=== PATIENT | male | born 1980 | race Caucasian/White ===

== ENCOUNTER 2016-05-14 07:30 | Inpatient (IN) | payer OTHER ==
[2016-05-23 09:39] LABS: MANUAL DIFF NEEDED? NO; URINE MICRO REVIEW NEEDED? NO; URINE SOURCE CLEAN CATCH
[2016-05-23 09:48] LABS: BASO% 0.5 % (0.0-0.8); EOS# 0.38 X1000 (0.0-0.7); EOS% 3.4 % (0.0-10.0); HEMOGLOBIN 14.5 g/dL (14.0-18.0); IMM GRAN# 0.02 X1000 (0.0-0.04); IMM GRAN% 0.2 % (0.0-0.5); LYMPH# 3.07 X1000 (1.2-3.4); LYMPH% 27.8 % (20.5-51.1); MCH 29.4 PG (27-31); MCV 89.1 FL (81-99); MONO# 0.85 X1000 (0.11-0.59); MONO% 7.7 % (1.7-9.3); MPV 8.3 FL (7.4-10.4); NEUT% 60.4 % (42.2-75.2); PLT 318 X1000 (130-400); RBC 4.94 XMIL (4.7-6.1)
[2016-05-23 09:57] LABS: BILIRUBIN URINE NEGATIVE (NEGATIVE); BLOOD URINE NEGATIVE (NEGATIVE); COLOR YELLOW; GLUCOSE URINE NEGATIVE (NEGATIVE); LEUKOCYTES URINE NEGATIVE (NEGATIVE); NITRITE URINE NEGATIVE (NEGATIVE); PH URINE 5.5; PROTEIN URINE 30 mg/dL (NEGATIVE); TURBIDITY URINE CLEAR (CLEAR); UR EPITHELIAL CELLS <10 /HPF (<10); URINE BACTERIA NEGATIVE /HPF; URINE RBC <10 /HPF (<10); URINE WBC <10 /HPF (<10); UROBILINOGEN URINE 2 mg/dL (NORMAL)
[2016-05-23 10:08] LABS: INR 0.91; PROTIME 9.3 Seconds (9.2-11.7); PTT 23.9 Seconds (22.0-36.0)
--- NOTE | 2016-05-23 10:45 | EKG Report ---
Test Performed on : 05/23/2016 09:17:27 AM Test Reason : PAT Blood Pressure : / mmHG Vent. Rate : 091 BPM Atrial Rate : 091 BPM P-R Int : 152 ms QRS Dur : 086 ms QT Int : 356 ms P-R-T Axes : 058 000 026 degrees QTc Int : 437 ms Normal sinus rhythm. Inferior infarct , age undetermined Abnormal ECG No previous ECGs available Confirmed by Marita SCRUGGS, Yohan Jeong ([id number]) on 05/24/2016 9:28:48 AM
[2016-05-23 10:49] LABS: AGAP 12; BUN 8 mg/dL (8-22); CALCIUM 9.1 mg/dL (8.8-10.2); CHLORIDE 99 mmol/L (98-107); COSMO 279; POTASSIUM 4.5 mmol/L (3.5-5.1); SODIUM 141 mmol/L (136-145); TCO2 30 mmol/L (25-35)
[2016-05-28] MEDS ORDERED: COLACE ONE (06:06)
[2016-05-28] MEDS ORDERED: PEPCID ONE (06:06)
[2016-05-28] MEDS ORDERED: REGLAN ONE (06:06)
[2016-05-28] MEDS ORDERED: KEFZOL 2 GM/D5W 50 ML ONE (06:07)
[2016-05-28] MEDS ORDERED: LR 1,000 ML ONE (06:07)
[2016-05-28] MEDS ORDERED: LYRICA ONE (06:07)
[2016-05-28] MEDS ORDERED: CELEBREX ONE (06:07)
[2016-05-28] MEDS ORDERED: DUONEB (A & A) INH ONE (06:54)
[2016-05-28] MEDS ORDERED: VALIUM ONE (06:55)
[2016-05-28] MEDS ORDERED: ROBINUL ONE ×2 (06:55→10:30)
[2016-05-28] MEDS ORDERED: TORADOL ONE (07:19)
[2016-05-28] MEDS ORDERED: DURAMORPH ONE (07:19)
[2016-05-28] MEDS ORDERED: SODIUM CHLORIDE 0.9% ONE (07:20)
[2016-05-28] MEDS ORDERED: CYKLOKAPRON 1,000 MG/NS 100 ML ONE (07:20)
[2016-05-28] MEDS ORDERED: NEOSPORIN G.U. IRRIGANT ONE (07:20)
[2016-05-28] MEDS ORDERED: MARCAINE 0.25% PF/EPI 1:200,000 ONE (07:20)
[2016-05-28] MEDS ORDERED: CLAVE SECONDARY SET 11953 ONE (07:21)
[2016-05-28] MEDS ORDERED: EXPAREL 1.3% ONE (07:21)
[2016-05-28 08:49] LABS: URINE MICRO REVIEW NEEDED? NO; URINE SOURCE CATH
[2016-05-28 09:59] LABS: URINE RBC <10 /HPF (<10); URINE WBC <10 /HPF (<10)
[2016-05-28 10:00] LABS: UR EPITHELIAL CELLS <10 /HPF (<10); URINE BACTERIA NEGATIVE /HPF
[2016-05-28 10:01] LABS: BILIRUBIN URINE NEGATIVE (NEGATIVE); BLOOD URINE NEGATIVE (NEGATIVE); COLOR YELLOW; GLUCOSE URINE NEGATIVE (NEGATIVE); SP GRAVITY URINE 1.012; TURBIDITY URINE CLEAR (CLEAR)
[2016-05-28 10:02] LABS: LEUKOCYTES URINE NEGATIVE (NEGATIVE); NITRITE URINE NEGATIVE (NEGATIVE); PH URINE 6.5; PROTEIN URINE NEGATIVE (NEGATIVE); UROBILINOGEN URINE NORMAL (NORMAL)
[2016-05-28] MEDS ORDERED: KETAMINE (DOSE) ONE (10:12)
[2016-05-28] MEDS ORDERED: FENTANYL ONE (10:12)
[2016-05-28] MEDS ORDERED: VERSED ONE (10:13)
[2016-05-28] MEDS ORDERED: DIPRIVAN 1% ONE (10:13)
[2016-05-28] MEDS ORDERED: MORPHINE IV PRN (10:16)
[2016-05-28] MEDS ORDERED: MILK OF MAGNESIA PO PRN (10:16)
[2016-05-28] MEDS ORDERED: ZOFRAN IV PRN (10:16)
[2016-05-28] MEDS ORDERED: NS 1,000 ML ONE (10:24)
[2016-05-28] MEDS ORDERED: NEO-SYNEPHRINE ONE (10:30)
[2016-05-28] MEDS ORDERED: NEOSTIGMINE ONE (10:30)
[2016-05-28] MEDS ORDERED: XYLOCAINE-MPF 2% ONE (10:30)
[2016-05-28] MEDS ORDERED: EPHEDRINE ONE (10:30)
[2016-05-28] MEDS ORDERED: ZOFRAN ONE (10:30)
[2016-05-28] MEDS ORDERED: STERILE WATER INJ. ONE (10:30)
[2016-05-28] MEDS ORDERED: NORCURON ONE (10:30)
[2016-05-28] MEDS ORDERED: DECADRON ONE (10:31)
[2016-05-28] MEDS ORDERED: OFIRMEV 1000 MG/ISOTONIC SOLN 100 ML ONE (10:31)
[2016-05-28] MEDS ORDERED: LR 2,000 ML ONE (10:31)
[2016-05-28] MEDS ORDERED: QUELICIN (DOSE) ONE (10:31)
--- NOTE | 2016-05-28 11:51 | OPERATIVE NOTE ---
PROCEDURE DATE: 05/28/2016 PREOPERATIVE DIAGNOSIS: Right hip degenerative joint disease. POSTOPERATIVE DIAGNOSIS: Right hip degenerative joint disease. PROCEDURE: Right hip total hip arthroplasty through a direct anterior approach using [facility] size 13 stem high offset, with a +0, 36 mm head, and a 62 mm hemispherical shell, and a 36 mm inside diameter acetabular liner. ANESTHESIA: General. SURGEON: Mil Roche MD REEL WINDER: SCOTT Rivera SECOND REEL WINDER: TC Rodríguez THIRD REEL WINDER: Harika Mccormack PA-C DESCRIPTION OF PROCEDURE: The patient was brought to the operative suite and placed in the supine position. After satisfactory of general anesthesia, patient was placed on the OSI table in the usual position for right hip. The right hip was then prepped and draped in the usual sterile fashion. A longitudinal incision was made beginning 2 cm distal and 2 cm lateral to the anterior superior iliac spine, extending distally and slightly laterally 8 cm. It was dissected sharply through skin and subcutaneous tissue, down the tensor fascia. The tensor fascia was incised and then dissected bluntly down to the deep tensor fascia. The deep tensor fascia was incised, electrocauterized the circumflex vessels, exposing the anterior capsule. A T-capsulotomy was performed, exposing the femoral neck. A femoral neck cut was made with the oscillating saw. The femoral head was removed with a power corkscrew. The labrum was resected along was some calcified labrum superiorly and laterally and acetabulum serially reamed to a 62 to accept a 62 cup. The 62 cup was then driven into place in the proper amount inclination and anteversion. This was well seated and stable, therefore, no screws were placed. The liner was then locked into the shell. Attention was then directed to the femur. The femur was externally rotated, extended, abducted, and elevated out of the wound with the hook on the OSI bed. The lateral neck was rongeured. The canal was serially broached to a size 13. A size 13 high offset, +0, was trialed, found to be excellent leg length, offset, and fit and fill of the stem. The trial was removed. The definitive stem was locked on the femur and once it was well seated the Biolox Delta +0, 36 mm head was locked onto the Perez taper of the stem neck and then the hip was reduced. It was found again to be in excellent position. The hip was copiously infiltrated with Exparel, including the posterior capsule, anterior capsule, anterior musculature, and subcutaneous tissue. The anterior capsule was repaired with #2 FiberWire. A drain was placed deep to the tensor fascia and buried around the stem neck. The tensor fascia and sartorius fascia were closed with 0 Vicryl suture running and the skin edges were approximated with 2-0 Vicryl. Skin was closed with skin omid and a sterile dressing was applied. The patient tolerated the procedure well without complication. At the end of the procedure, all counts correct x2. The patient was transferred to the recovery room in stable condition.
[2016-05-28] MEDS: ULTRAM PO SCH ×2 (12:47→17:20)
[2016-05-28] MEDS: OXY IR PO SCH ×3 (13:06→21:20)
[2016-05-28] MEDS: NS 1,000 ML IV SCH (13:07)
[2016-05-28] MEDS ORDERED: CYKLOKAPRON 1,000 MG in NS 100 ML IV ONE (14:00)
[2016-05-28] MEDS: FLEXERIL PO SCH ×2 (14:16→21:24)
[2016-05-28] MEDS: TYLENOL PO SCH ×2 (14:16→21:24)
[2016-05-28] MEDS: NEURONTIN PO SCH ×2 (14:16→21:31)
[2016-05-28] MEDS: MORPHINE IV PRN ×2 (14:31→19:23)
[2016-05-28] MEDS: NICODERM PATCH TD SCH (15:42)
[2016-05-28] MEDS: KEFZOL 2 GM/D5W 50 ML IV SCH (15:42)
[2016-05-28] MEDS ORDERED: AMBIEN PO PRN (21:00)
[2016-05-28] MEDS ORDERED: DESYREL PO SCH (21:00)
[2016-05-28] MEDS: PERIDEX MT SCH (21:20)
[2016-05-28] MEDS: COLACE PO SCH (21:23)
[2016-05-29] MEDS: OXY IR PO PRN ×2 (00:14→03:57)
[2016-05-29] MEDS: KEFZOL 2 GM/D5W 50 ML IV SCH (00:18)
[2016-05-29] MEDS: NS 1,000 ML IV SCH (00:19)
[2016-05-29] MEDS: ULTRAM PO SCH ×2 (00:20→06:01)
[2016-05-29] MEDS: MORPHINE IV PRN ×3 (01:56→06:00)
[2016-05-29] MEDS: TYLENOL PO SCH ×2 (03:59→08:12)
[2016-05-29] MEDS ORDERED: DILAUDID IV ONE (04:15)
[2016-05-29] MEDS ORDERED: XARELTO PO SCH (06:00)
[2016-05-29 06:13] LABS: HEMATOCRIT 28.3 % (42.0-52.0); HEMOGLOBIN 9.1 g/dL (14.0-18.0)
[2016-05-29 06:44] LABS: AGAP 12; BUN 13 mg/dL (8-22); CALCIUM 8.3 mg/dL (8.8-10.2); CHLORIDE 100 mmol/L (98-107); COSMO 275; POTASSIUM 4.2 mmol/L (3.5-5.1); SODIUM 137 mmol/L (136-145); TCO2 25 mmol/L (25-35)
[2016-05-29 07:47] VITALS: BP 135/88
[2016-05-29] MEDS: PERIDEX MT SCH (08:10)
[2016-05-29] MEDS: FLEXERIL PO SCH (08:12)
[2016-05-29] MEDS: COLACE PO SCH (08:12)
[2016-05-29] MEDS: NEURONTIN PO SCH (08:12)
[2016-05-29] MEDS: NICODERM PATCH TD SCH (08:15)
[2016-05-29] MEDS ORDERED: OXY IR PO SCH (09:00)
[2016-05-29] MEDS ORDERED: DECADRON IV ONE (09:00)
[2016-05-29] MEDS ORDERED: PEPCID PO SCH (09:00)
[2016-05-29] MEDS ORDERED: CELEBREX PO SCH (09:00)
--- NOTE | 2016-05-30 02:35 | DISCHARGE SUMMARY ---
ADMISSION DATE: 05/28/2016 DISCHARGE DATE: 05/29/2016 DISCHARGE DIAGNOSIS: Right hip degenerative joint disease and avascular necrosis, status post right total hip arthroplasty. DISCHARGE MEDICATIONS: See discharge medication list. DISPOSITION: Patient discharged home with home physical therapy. Instructed to return for any signs of infection of deep venous thrombosis. Instructed to return to see Dr. Roche next . HOSPITAL COURSE: On the day of admission, the patient underwent a right anterior total hip arthroplasty. His postoperative course was unremarkable. At discharge he is afebrile, tolerating a regular diet, ambulating well with physical therapy. His wound is clean, dry , intact without sign of infection. He is discharged home in stable condition. He was instructed to follow up as described above. Erin Roche MD MTDD
== END 2016-05-29 10:37 | disposition home health service (06) | DRG 470 ==
LOC: SURHOLD 05-28 05:43 → 4N 05-28 08:21 → DIRADM 05-28 14:23 → 4N 05-28 14:26 → DIRADM 05-29 07:15 → 4N 05-29 07:19 → DIRADM 05-29 07:57 → 4N 05-29 08:00
PROVIDERS: ADMIT Orthopaedic Surgery; ATTEND Orthopaedic Surgery
PROC: 0SR904A Replacement of Right Hip Joint with Ceramic on Polyethylene Synthetic Substitute, Uncemented, Open Approach (ICD-10-PCS; principal; 2016-05-28 07:34)
DX: M16.7 Other unilateral secondary osteoarthritis of hip (principal); M87.9 Osteonecrosis, unspecified; M06.9 Rheumatoid arthritis, unspecified; Z96.642 Presence of left artificial hip joint; F17.210 Nicotine dependence, cigarettes, uncomplicated; F32.9 Major depressive disorder, single episode, unspecified; Z79.891 Long term (current) use of opiate analgesic; Z79.899 Other long term (current) drug therapy
CPT/HCPCS: 76000; 80048; 81001; 85014; 85018; 85025; 85610; 85730; 86850; 86900; 86901; 93005; 93010; 94761; 94799; C9290; J0131; J0330; J0690; J1100; J1170; J1885; J2250; J2270; J2274; J2370; J2405; J3010; J7030; J7120; 97116-GP; 97530-GP; J2710; S0020